=== PATIENT | female | born 1990 | race Caucasian/White ===

== ENCOUNTER 2018-08-20 19:22 | Inpatient (IN) | payer MEDICAID ==
[2018-08-20 20:14] VITALS: BMI 29.3
[2018-08-20] MEDS ORDERED: Lactated Ringer's 1,000 ML IV ONE (20:14)
[2018-08-20] MEDS ORDERED: Oxytocin 30 UNIT 30 UNITS/500 ML BAG IV ONE (20:17)
[2018-08-20] MEDS ORDERED: OXYTOCIN/0.9 % NS 20 UNIT/1,000 ML BAG IV SCH (20:30)
[2018-08-20] MEDS: Lactated Ringer's 1,000 ML IV SCH (20:30)
[2018-08-20 20:50] VITALS: BP 124/58
--- NOTE | 2018-08-20 20:50 | OBADHP ---
Datetime: 08/20/2018 20:18 Admit Comment, IP Provider: Pt is a 28yo F IUP @41.1wk ROGELIO is 08/12/18 based on LMP 11/05/17 conf irmed with 12 week U/S done on 01/28/18. Pt is here for a scheduled induction, she states she has a re ddish vaginal discharge. Denies overt vaginal bleeding, LOF, contractions, fevers, dizziness, headach e, blurry vision, chest pain, SOB, nauses, vomiting, diarrhea, constipation, dysuria; Reports good fe kamini movement. PNP: [facility]- Dr. Thibodeaux PNL: ABO: A+, other labs unremarkable, Received PPD on 02/12, Did not receive TDAP OB HX: No complications Pbx Inspector Hx: No STI's or abnormal pap smears PMHx: Denies Meds: vitamin- didnt take today Allergies: NKDA Surg Hx: Denies Social Hx: Denies smoking, EtOh, drugs Family Hx: Denies PHYSICAL EXAM General: Lying in bed comfortable, NAD HEENT: NCAT, EOMI Heart: no murmurs, regular rate and rhythm, S1, S2 normal. Lungs: clear to auscultation bilaterally, no wheezing, rales or rhonchi Abdomen: Gravid, soft non tender to palpation, + BS LE: No edema Heart Rate: 150, moderate variability, Category 1, 15x15 Bimanual- cervix thick and closed, posterior A/P: 28yo F IUP @41.1wk here for scheduled induction -Admit to L _ D. -Initiate Labor protocol, start cervidil -Bimanual -cervix closed, thick, high and posterior -IVF, Pitocin -Monitor heart tracings 150 moderate variability, Category 1 -Bedside U/S cephalic Case reviewed and discussed with Attending Em Dalton M.D. PGY-1 OB Hospitalist Addendum: Pt seen and examined by me. Agree w/ above. 28 yo G1 at 41+1 wks for ind uction of labor for post-dates. FHT reactive. GBS negative. Will start induction w/ cervidil. (ES ) Pelvic Type - PN: Adequate Extremities - PN: Normal Abdomen - PN: Normal Back - PN: Not Done Breast - PN: Not Done Lungs - PN: Normal Heart - PN: Normal Thyroid - PN: Not Done Neurologic - PN: Not Done HEENT - PN: Normal General - PN: Normal FHR - Baseline A Provider: 150 Membranes, Provider: Intact Comments, ACOG Physical Exam: Bimanual- cervix thick, closed, high and posterior Bedside U/S cephalic Pool Provider: Negative Vital Signs Provider: Reviewed; Within Normal Limits IP Chief Complaint: Scheduled induction of labor NICHD Variability Prov Fetus A: Moderate 6-25bpm NICHD Accel Fetus A IP Provider: 15X15 FHR Category Provider Fetus A: Category I NICHD Decel Fetus A IP Provider: None Dilatation, Provider: 0 Genitourinary Exam: Normal DTRs - PN: Not Done EGA AdmitDate IP: 41.1 IP Adm Impression: Postterm, intrauterine IP Admit Plan: Admit to unit; Initiate labor induction protocol
[2018-08-20 21:07] LABS: BASO % 0.3 % (0.0-2.0); EOS # 0.1 K/uL (0.0-0.7); EOS % 1.1 % (0.0-4.0); HEMOGLOBIN 12.5 g/dL (12.0-16.0); LYMPH # 1.3 K/uL (1.0-4.3); LYMPH % 19.4 % (20.0-40.0); MEAN CELL VOLUME 82.3 fl (81.0-99.0); MEAN CORPUSCULAR HEMOGLOBIN 27.2 pg (27.0-31.0); MEAN PLATELET VOLUME 9.4 fl (7.2-11.7); MONO # 0.5 K/uL (0.0-0.8); MONO % 7.2 % (0.0-10.0); NEUT # 4.7 K/uL (1.8-7.0); RBC 4.62 Mil/uL (3.80-5.20); RED CELL DISTRIBUTION WIDTH 19.6 % (11.5-14.5); WHITE BLOOD COUNT 6.5 K/uL (4.8-10.8)
[2018-08-21] MEDS: Lactated Ringer's 1,000 ML IV SCH ×3 (00:42→12:46)
[2018-08-21] MEDS ORDERED: Oxytocin 30 UNIT 30 UNITS/500 ML BAG IV ONE (06:30)
--- NOTE | 2018-08-21 06:36 | OBPN ---
Datetime: 08/21/2018 06:30 IP Progress Impression: Normal progression of labor IP Procedures: Sterile Vag Exam IP Progress Plan: Induction Membranes, Provider: Bulging Amniotic Fluid Color, Provider: Meconium, Heavy Contraction Comments Provider: irreg FHR - Baseline A Provider: 130's IP Progress Note Comment: 28 yo G1 at 41+2 wks for post-dates induction s/p cervidil placed at 9:15 pm and came out at 0627 Will start pitocin FHT reassuring, GBS negative NICHD Accel Fetus A IP Provider: 15X15 FHR Category Provider Fetus A: Category I NICHD Variability Prov Fetus A: Moderate 6-25bpm Dilatation, Provider: 5-6 Datetime: 08/20/2018 20:18 Pool Provider: Negative Vital Signs Provider: Reviewed; Within Normal Limits NICHD Decel Fetus A IP Provider: None
[2018-08-21] MEDS ORDERED: Fentanyl/Bupivacaine HCl 250 ML EPI ONE (08:36)
[2018-08-21] MEDS ORDERED: Bupivacaine HCl 0.5% PF (30 ml) Inj ONE (09:08)
[2018-08-21] MEDS ORDERED: ceFAZolin IV 2 gm in Dextrose 2 GM/50 ML BAG IVPB ONE (17:04)
[2018-08-21] MEDS ORDERED: OXYTOCIN/0.9 % NS 20 UNIT/1,000 ML BAG IV ONE ×2 (17:20→18:52)
[2018-08-21] MEDS ORDERED: Lidocaine 2% PF (10 ml) Amp ONE (17:24)
[2018-08-21] MEDS ORDERED: Propofol 10 mg/ml Inj (20 ML) ONE (17:53)
[2018-08-21] MEDS ORDERED: Morphine 5 mg/10 ml preservative-free Inj(Duramorph) ONE (18:22)
[2018-08-21] MEDS ORDERED: Oxycodone/Acetaminophen 5/325 mg Tab PO PRN ×2 (18:39→21:23)
[2018-08-21] MEDS ORDERED: DiphenhydrAMINE 50 mg/ml Inj IVP PRN ×2 (19:00→21:23)
[2018-08-21] MEDS ORDERED: Lactated Ringer's 1,000 ML IV SCH (21:23)
--- NOTE | 2018-08-21 21:31 | OBDS ---
DELIVERY PERSONNEL Delivery Doctor: Antwan Ordaz MD Loss Prevention/Safety District Manager: Gauri Terrell RN Anesthesiologist: Dick Saravia MD Resident: Malia Hinton MATERNAL INFORMATION Delivery Anesthesia: Epidural Medications in Delivery: Ancef 2GM Estimated Blood Loss (ml): 700 Placenta Cultured: No Maternal Complications: None RN Comments: 50ml blood tinged urine emptied at end of procedure Provider Comments: Primary delivery of a viable female with BW of 8Ibs 13oz and APGA R scores of 9 and 9. delivered in the right occipito-posterior position. EBL- 600mls No complication. LABOR SUMMARY EDC: 08/12/2018 00:00 No. Babies in Womb: 1 Attempted: No Labor Anesthesia: Epidural LABOR INFORMATION Reason for Induction: Postterm Onset of Labor: 08/21/2018 06:25 Complete Dilatation: 08/21/2018 13:06 Cervical Ripening Agents: Cervidil Oxytocin: Induction Group B Beta Strep: Negative Antibiotics # of Doses: 1 Steroids Given: None Reason Steroids Not Administered: Not Applicable MEMBRANES Membranes Rupture Method: Spontaneous Rupture of Membranes: 08/21/2018 23:24 Length of Rupture (hrs): -5.55 Amniotic Fluid Color: Light Meconium Amniotic Fluid Amount: Moderate Amniotic Fluid Odor: Normal STAGES OF LABOR Stage 1 hrs: 6 Stage 1 min: 41 Stage 2 hrs: 4 Stage 2 min: 45 Stage 3 hrs: 0 Stage 3 min: 1 Total Time in Labor hrs: 11 Total Time in Labor min: 27 CSECTION DELIVERY Primary Indication: Arrest of Descent CSection Urgency: Non Elective CSection Incidence: Primary Labor: Labor Elective: Nonelective CSection Incision: Lower Uterine Transverse Uterine Closure: Double-layer closure BABY A INFORMATION Delivery Date/Time: 08/21/2018 17:51 Method of Delivery: Born in Route : No : N/A Forceps: N/A Vacuum Extraction: N/A Shoulder Dystocia : No SHOULDER DYSTOCIA BABY A Delivery Date/Time: 08/21/2018 17:51 PRESENTATION/POSITION BABY A Presentation: Cephalic Cephalic Presentation: Vertex Vertex Position: Right Occipital Posterior Breech Presentation: N/A PLACENTA INFORMATION BABY A Placenta Delivery Time : 08/21/2018 17:52 Placenta Method of Delivery: Manual Removal Placenta Status: Delivered SCORES BABY A Heart Rate 1 min: >100 bpm Resp Effort 1 min: Good Cry Reflex Irritability 1 min: Cough or Sneeze or Pulls Away Muscle Tone 1 min: Active Motion Color 1 min: Body Dresser, Extremities Blue Resuscitation Effort 1 min: N/A SCORE 1 MIN: 9 Heart Rate 5 min: >100 bpm Resp Effort 5 min: Good Cry Reflex Irritability 5 min: Cough or Sneeze or Pulls Away Muscle Tone 5 min: Active Motion Color 5 min: Body Dresser, Extremities Blue Resuscitation Effort 5 min: N/A SCORE 5 MIN: 9 INFANT INFORMATION BABY A Gestational Age at Delivery: 41.2 Gestational Status: Post-term Outcome : Liveborn Condition : Stable Sex: Female IDENTIFICATION/MEDS BABY A ID Band Number: [id number] ID Band Location: Left Leg; Left Arm WEIGHT/LENGTH BABY A Infant Birthweight (gms): 3990 Infant Weight (lb): 8 Infant Weight (oz): 13 Infant Length Inches: 20.00 Infant Length cms: 50.8 CORD INFORMATION BABY A No. Cord Vessels: 3 Nuchal Cord : N/A Cord Blood Taken: Yes Suction: Mouth; Nose ASSESSMENT BABY A Complications: Meconium Physical Findings at Delivery: Caput Succedaneum Infant Respirations: Appears Normal Care By: Tuyet Mosqueda/ Dr Capps Transferred To: [facility]
--- NOTE | 2018-08-21 21:38 | PCM.SURG1 ---
Surgeon's Initial Post Op Note - Surgeon's Notes Surgeon: Dr Ordaz Distributor Sales Consultant: Dr Malia Hinton( Family Practice Resident ) Type of Anesthesia: Spinal Anesthesia Administered By: Dr Saravia Pre-Operative Diagnosis: IUP at term in the Second Stage. Arrest of Descent Operative Findings: Live female with BW of 8Ibs 13oz with scores of 9 and 9 delivered in the ROP positioning, Fundal Placenta, clear amnotic fluid,. Normal uterus fallopian tubes and ovaries. Bladder appeared edematous. EBL- 600mls. IVFluid intake - 1500mls. Urine output - 50mls. Drained before the procedure. Post-Operative Diagnosis: Same as preop diagnosis Operation Performed: Primary Low Transverse Section Specimen/Specimens Removed: Cord blood obtained for routine check Estimated Blood Loss: EBL {In ML}: 600 Blood Products Given: N/A Post-Op Condition: Good Date of Surgery/Procedure: 08/21/18 Time of Surgery/Procedure: 17:30
--- NOTE | 2018-08-22 02:27 | OP ---
PROCEDURE DATE: 08/21/2018 PREOPERATIVE DIAGNOSIS: Intrauterine at term in the second stage with arrest of descent. POSTOPERATIVE DIAGNOSIS: Intrauterine at term in the second stage with arrest of descent. PROCEDURE DONE: Primary low transverse section. SURGEON: Sven Ordaz MD EXTRUSION DIE REPAIRER: Dr Malia Hinton ,a family practice resident. Assistance to this procedure was needed for exposure of tissues and help in the delivery of the baby. The visitor use assistant remained with the surgery throughout its entire length. TYPE OF ANESTHESIA: Epidural. ANESTHESIA ADMINISTERED BY: Dr. Saravia OPERATIVE FINDINGS: A live female infant with weight of 8 pounds 13 ounces with scores of 9 in the first and fifth minutes respectively, delivered in the right occipitoposterior positioning. There was a caput which was after delivery of the head. There was edema of the bladder peritoneum. The placenta was fundal. The amniotic fluid was clear. The uterus as well as both fallopian tubes and ovaries appeared normal. ESTIMATED BLOOD LOSS: 600 mL. INTRAVENOUS FLUID INTAKE: Approximated to be 1500 mL. URINE OUTPUT: After procedure was about 50 mL which was red tinged. COMPLICATIONS: There were no complications. DESCRIPTION OF PROCEDURE: After obtaining informed consent, the patient was sent to the OR with IV running and a Youssef catheter in place. The patient was put in a supine position on the OR table and after epidural anesthesia was topped up by the sales support manager to anesthetic levels. The patient was prepped and draped in the usual sterile fashion. A Pfannenstiel skin incision was made using a scalpel. This was continued with Bovie device, and the incision was made through the subcutaneous tissues till the rectus fascia was identified. A transverse incision was made in the mid portion of the rectus fascia, and this incision was extended to both sides in a blunt fashion. The rectus fascia was lifted off underlying rectus muscles both superiorly and inferiorly by means of sharp and blunt dissection. The rectus muscles were in the midline to expose the peritoneum, which was tented between two Maya clamps and sharply entered with Metzenbaum scissors and with good visualization of the bladder. Once the abdominal cavity was entered, above findings were noted. Bladder peritoneum was developed and retracted inferiorly to expose the lower uterine segment. A low-transverse incision was made by means of the scalpel. The incision was sent through the myometrial layers till the amniotic membranes were identified. The incision was extended to both sides in a blunt fashion. The amniotic membranes were ruptured with pickup forceps, and the baby which was positioned in the right occipital posterior positioning was delivered. Baby cried immediately after . After which, the three-vessel cord was clamped and cut. The baby was then given to the nurse. Umbilical cord blood was obtained, and the placenta was manually removed from the uterine cavity. The uterus was then brought out of the abdominal cavity, and the uterine cavity was cleaned of all debris using dry laparotomy pads. The uterine incision was then closed in two layers using Vicryl #0. The first layer in a running interlocked fashion and the second layer in a running fashion imbricating the first layer. This was done so, hemostasis was achieved. Irrigation of the pelvis with sterile water was performed at this point, after which the uterus was sent back into the abdominal cavity after removing all laparotomy pads. The incisional site was re-inspected for any bleeding and after assuring hemostasis, attention was turned to the anterior abdominal wall, which was closed in layers with 2-0 Vicryl for the peritoneum and rectus muscles. The rectus fascia was reapproximated using Vicryl #0. The subcutaneous tissue was brought together using #2-0 plain catgut. The skin was closed in a subcuticular fashion using #4-0 Vicryl. All counts of instruments, laparotomy pads, and needles used were correct x3. The patient was sent to the recovery room awake and in stable condition. Sven Ordaz MD [facility]
[2018-08-22 06:58] LABS: HEMOGLOBIN 11.4 g/dL (12.0-16.0); MEAN CELL VOLUME 82.6 fl (81.0-99.0); MEAN CORPUSCULAR HEMOGLOBIN 27.2 pg (27.0-31.0); MEAN CORPUSCULAR HGB CONC 32.9 g/dL (33.0-37.0); RBC 4.21 Mil/uL (3.80-5.20); RED CELL DISTRIBUTION WIDTH 19.9 % (11.5-14.5); WHITE BLOOD COUNT 9.8 K/uL (4.8-10.8)
[2018-08-22] MEDS ORDERED: Influenza Vaccine 60 mcg/0.5 mL SYR (4YR UP) IM ONE (08:16)
[2018-08-22] MEDS ORDERED: Multivitamin With Minerals Tab PO SCH (09:00)
[2018-08-22] MEDS: Multivitamin With Minerals Tab PO SCH (09:16)
--- NOTE | 2018-08-22 16:07 | OBPPN ---
Datetime: 08/22/2018 08:40 PP Pain Prov: Within normal limits PP Nausea Prov: Denies PP Flatus Prov: No PP BM Prov: No PP Breasts Prov: Not Done PP Heart Prov: Normal PP Lungs Prov: Normal PP Abdomen/Uterus Prov: Normal PP Lochia Prov: Normal PP Vulva/Perineum Prov: Not Done PP CVA Tenderness Prov: Normal PP Extremities Prov: Abnormal PP C/S Incision Prov: Normal PP Progress Prov: Normal PP Comments Phys Exam Prov: Ankle edema, +1, b/l PP Impression Prov: Normal progression PP Plan Prov: Continue present management PP Progress Note Prov: POD#1, s/p Primary due to arrest S: 28 yo s/p on 08/21/18, Post-date 41.2 GA, healthy female NB. Pt. is seen and exa mined at bedside this AM. No overnight events. Pt reports mild abdominal pain, but well controlled wi th pain meds. d/opal martinez this morning, dressing clean dry and intact. no nausea, advised to advance diet as tolerated. Breast feeding without difficulty. Lochia is similar to menses volume. no Bowel mo vement, but passing gas per rectum. Denies fever/chills, diarrhea, nausea/vomiting, chest pain, dyspn ea, and dizziness. O: VS: stable GEN: NAD, seen baby Cardio: s1s2, no M/G/R Resp: clear breath sounds b/l Abdomen: BS+, tenderness to palpation. dressing intact, c/d. Uterus is firm and at the level of th e umbilicus. EXT: No edema, calves nontender NEURO/PSYCHI: AAOx3, no grossly focal deficit, preserved affect and mood. Assessment/Plan:28 yo s/p on 08/21/18, Post-date 41.2 GA, healthy female NB. Pt rem ains afebrile, tolerating pain with medication, doing well on POD#1. OOB with caution SCDs for DVT prophylaxis, encouraged ambulating Percocet 5/325mg, and Ibuprofen 600mg for pain. Colace 100mg PO BID for constipation Encourage and ambulating Advance diet as tolerated to regular CBC post op, reviewed Flu vaccine today Anticipated d/c to home 08/24/18 - Case discussed with OB oncall atttending --- Dr. Mike jennings, PGY-II Attending Note: patient seen and discussed with Resident and I agree with the above assessment. IP PP Procedures: None
--- NOTE | 2018-08-23 08:35 | OBPPN ---
Datetime: 08/23/2018 07:56 PP Pain Prov: Within normal limits PP Nausea Prov: Denies PP Flatus Prov: Yes PP BM Prov: No PP Heart Prov: Normal PP Lungs Prov: Normal PP Abdomen/Uterus Prov: Normal PP Lochia Prov: Normal PP Extremities Prov: Normal PP Impression Prov: Normal progression PP Plan Prov: Continue present management PP Progress Note Prov: 28 y/o POD2 s/p bc of arrest of descent. Patient was unable to void. Youssef was removed this AM. Abdominal pain is as expected. Lochia like menses. +Flatus, -BM. To lerating regular diet without complications. Breast _ Bottle feeding. Denies f/c/n/v/chest discomfort or diarrhea. Gen: laying upright in bed with [id number] at bedside Cardio: s1s2 no murmurs Resp: cta b/l Abd: dressing removed with steristripes in place (patient states she will remove in shower) Ext: nonedematous A/P:28 y/o POD2 s/p bc of arrest of descent. encouraged Pain medication regimen PRN Ambulate as tolerated SCD for DVT prophylaxis Anticipated discharge tomorrow Case discussed with attending -BEATRIZ Saavedra JP, PGY-1 Attending addendum: I saw and examined the patient at bedside myself this morning. I reviewed the resident note above and agree with findings and management. Beth Haddad MD Vital Signs Provider PP: Reviewed; Within Normal Limits
[2018-08-23] MEDS: Multivitamin With Minerals Tab PO SCH (10:05)
[2018-08-23] MEDS: Simethicone 80 mg Chewtab PO PRN ×2 (10:57→22:40)
[2018-08-24] MEDS: Multivitamin With Minerals Tab PO SCH (09:27)
--- NOTE | 2018-08-24 09:30 | OBDCSUM ---
Datetime: 08/24/2018 06:07 Discharged to, Provider: Home Follow up at, Provider: Dr. Thibodeaux at [facility] Disch Instr Activity: Normal activity; May be up to bathroom; May be up for meals; May Shower Disch Instr Diet: Regular Discharge Instructions, Provider: Routine instructions given Discharge Diagnosis, Provider: Term Delivered; Failed Induction Discharge Time: 08/24/2018 11:00 Follow up in weeks, Provider: 1week wound check and , 4-6 week PP Disch Referrals: None Contraception discussed, Prov: Yes Disch Activity Restrictions: No lifting; No sexual activity; Nothing in vagina - [place], tampon s, douche Discharge Comment, Provider: DISCHARGE 28yo s/p C section after failed induction and arrest of descent on 08/21/18 Pt doing well on POD3 EGA: 41.1 weeks Diagnosis: C section, arrest of descent Summary of : No OB complications DOD: 08/21 @ 15:51 Sex: Female Weight: 3990gm : 9/9 Feeding: Breast and bottle summary: Pt had lochia similar to menses, Pt hemodynamically stable CBC : 11.4/34.8 (admission 12.5/38) Blood type: A+ DISCHARGE DATA D/C DATE: 08/24/2018 DISCHARGE INSTRUCTIONS: -Encouraged -PNV 1 tab po q/day -Ibuprofen 600 mg 1 tab po q4-6h PRN mild pain #30 -Percocet 5/325mg 1 tab po q6hrs PRN severe pain #20 -Simethicone 80mg 1 tab po Q8hr PRN gas pain # 15 -Ambulate with caution, nothing per vagina/sex for 4 weeks, no heavy lifting, avoid stairs, if exc essive bleeding or fever without relief from Tylenol go to ED -F/U [facility] for and wound check appt in [address] Thibodeaux and post - appt in 4-6 weeks. Case reviewed and discussed with Attending Em Dalton M.D. PGY-1 Agree with above discharge summary --Dr. Armstrong Contraception after Delivery: Undecided
--- NOTE | 2018-08-24 09:30 | OBPPN ---
Datetime: 08/24/2018 06:02 PP Pain Prov: Within normal limits PP Nausea Prov: Denies PP Flatus Prov: Yes PP BM Prov: No PP Breasts Prov: Not Done PP Heart Prov: Normal PP Lungs Prov: Normal PP Abdomen/Uterus Prov: Normal PP Lochia Prov: Normal PP Vulva/Perineum Prov: Not Done PP CVA Tenderness Prov: Not Done PP Extremities Prov: Normal PP C/S Incision Prov: Normal PP Progress Prov: Normal PP Impression Prov: Normal progression PP Plan Prov: Continue present management; Discharge PP Progress Note Prov: [id number] POD3 S: 28yo s/p C section after induction with arrest of descent. Seen and examined at bedside. P atient had an uneventful overnight. Pt reports mild pelvic and gas pains controlled with pain medicin e and simethicone. Both breast and bottle feeding without difficulty. Tolerating PO diet. Ambulating well without dizziness. Voiding well without hematuria, Denies having a bowel movement but is passing gas per rectum. Denies fever/chills, diarrhea/constipation, nausea/vomiting, CP/SOB, dizziness, or c smith pain. O: PHYSICAL EXAM: GEN: Resting comfortably in bed, NAD HEENT: NCAT LUNGS: CTA, no wheezing, rhonchi, or rales CVS: RRR, S1, S2, no m/r/g ABD: ND, +BS, firm fundus @ umbilical level. Incision clean dry and intact no blood noted, soft, a ppropriate TTP EXT: no edema or calf pain A/P: 28yo s/p on 08/21/18 @ 15:51. POD3 Encouraged Tolerating regular diet OOB with caution Continue vitamin Ibuprofen 600 mg 1 tab q6 hrs po if mild pain. Percocet 5/325 mg 1-2 tablets po q 6 hrs if severe pain Simethicone 80mg Q8h #15 PRN for gas Discharge to home today 08/24/18 F/U in 1 week for and wound check appt and 4-6 weeks post- appt at [facility] with Dr. Thibodeaux Case reviewed and discussed with Attending Em Dalton M.D. PGY-1 Patient seen and examined by me this am, agree with above note --Dr. Armstrong IP PP Procedures: None Vital Signs Provider PP: Reviewed; Within Normal Limits
[2018-08-24 20:18] VITALS: PULSE 93; RESP 20; TEMP 97.9; O2SAT 99
== END 2018-08-24 13:15 | disposition home or self-care (01) | DRG 371 ==
LOC: H.EROB2 19:22 → H.L&D 20:14 → H.OB/GYN 08-21 21:13
PROVIDERS: ADMIT Obstetrics & Gynecology; ATTEND Obstetrics & Gynecology
PROC: 4A1HXCZ Monitoring of Products of Conception, Cardiac Rate, External Approach (ICD-10-PCS; 2018-08-20)
PROC: 10D00Z1 Extraction of Products of Conception, Low, Open Approach (ICD-10-PCS; principal; 2018-08-21)
DX: O48.0 Post-term pregnancy (principal); O77.0 Labor and delivery complicated by meconium in amniotic fluid; O62.1 Secondary uterine inertia; Z3A.41 41 weeks gestation of pregnancy; Z37.0 Single live birth; O61.9 Failed induction of labor, unspecified; K59.00 Constipation, unspecified